=== PATIENT | male | born 1940 | race Caucasian/White ===

== ENCOUNTER 2023-01-02 14:24 | Outpatient (OUT) | payer MEDICARE, SELFPAY ==
[2023-01-03 05:08] LABS: PSA, Free 1.38 ng/mL; Prostate Specific Ag 10.4 ng/mL (0.0-4.0)
== END 2023-01-02 14:25 | disposition home or self-care (01) ==
LOC: LAB 14:25
PROVIDERS: PCP Family Medicine; Visit Provider Urology
DX: R97.20 Elevated prostate specific antigen [PSA] (principal)
CPT/HCPCS: 36415; 84153; 84154

== ENCOUNTER 2023-06-23 12:46 | Emergency (ER) | payer MEDICARE, SELFPAY ==
--- NOTE | 2023-06-23 12:59 | ED_ITS ---
HPI - CPR General Chief Complaint: Cardiac Arrest/CPR Stated Complaint: cardiac arrest Source: family Mode of arrival: ambulance History of Present Illness HPI Narrative: This patient was brought to us by ambulance by local paramedics. A [facility] had been called based on their initial report. When they arrived here resuscitation efforts continued while we clarified information. The medics indicated that they arrived at the scene of a patient who had collapsed in his workshop. His indicated that he had been grumpy the last couple days and was quiet as usual. She says that he never complained of anything. He had not been complaining of a headache or chest discomfort or trouble breathing that she was aware of. The paramedics indicated that when they arrived there he had been collapsed over and the initial rhythm strip when they put him on a monitor was asystole. At no time did he have organized electrical activity. At no time did he have spontaneous pulse or spontaneous respiratory effort. He followed there CPR and ACLS protocols. They said they worked him at the scene for between 35 and 45 minutes unsuccessfully. They also mentioned that he may have some legal documents for resuscitation wishes. I did evaluate those when they arrived here. They did have intraosseous access and had been given epinephrine per their records. Examination Exam Primary Survey: Yes pulseless, Yes asystole and Yes esophageal tracheal airway in place General: Yes overweight and Yes obese Eyes: Yes no periorbital swelling and Yes fixed dialated pupils Chest: Yes intact to palpation Circulation: Yes absent heart sounds Respiratory: Yes equal breath sounds Extremities: Yes intact to palpation MDM - Cardiac Arrest/CPR MDM Narrative Medical decision making narrative: Patient's presents after prolonged resuscitation with no pulse no spontaneous respirations. Pupils are fixed and dilated. There is no corneal blink response. No spontaneous respiratory effort distally here. They did present me with paperwork that indicated he did not want prolonged artificial life support. Will contact his primary care doctor. No indication for coronary report at this stage. Time of 1249 Discharge Plan Discharge Chief Complaint: Cardiac Arrest/CPR Print Language: [place]
--- OUTSIDE RECORDS SUMMARY | 2023-06-23 13:09 | XMS_ITS | CCD ---
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 Name Role Phone MD Alia Souza Primary Care Provider DO Bernardo Trevino Attending Provider BRISTOL, DR GOYAL Admitting Unavailable BRISTOL, DR GOYAL Attending Unavailable BRISTOL, DR GOYAL Primary Care Unavailable BRISTOL, DR GOYAL Consulting Unavailable BRISTOL, DR GOYAL Admitting Unavailable BRISTOL, DR GOYAL Attending Unavailable BRISTOL, DR GOYAL Primary Care Unavailable BRISTOL, DR GOYAL Consulting Unavailable BRISTOL, DR GOYAL Admitting Unavailable BRISTOL, DR GOYAL Attending Unavailable BRISTOL, DR GOYAL Primary Care Unavailable BRISTOL, DR GOYAL Consulting Unavailable Jerardo MAR Attending Unavailable MAR, Jerardo De La Rosa Attending Unavailable BRISTOL, BERNARDO Referring Unavailable Allergies Allergy Classification Reported Allergen(s) Allergy Type Date of Onset Reaction(s) Facility (1 source) No Known Medication Allergies; Translations: [No Known Medication Allergies] Propensity to adverse reactions (disorder) [facility] Repository Problems Problem Classification Problem Date Documented Da te Episodic/Chronic Diabetes mellitus without complication (4 sources) Type 2 diabetes mellitus without complications; Translations: [TYPE 2 DM WITHOUT COMPLICATIONS] Onset: 04-18-2022 Chronic Genitourinary symptoms and ill-defined conditions (1 source) Post-void dribbling; Translations: [POST-VOID DRIBBLING] Onset: 04-20-2022 Chronic Other circulatory disease (1 source) Elevated blood-pressure reading, without diagnosis of hypertension; Translations: [ELEVATED BP READING W/O DX HTN] Onset: 04-20-2022 Episodic Other screening for suspected conditions (not mental disorders or infectious disease) (6 sources) Elevated prostate specific antigen [PSA]; Translations: [Encounter for screening for malignant neoplasm of prostate] Onset: 04-20-2022 Episodic Viral infection (4 sources) COVID-19; Translations: [COVID-19] Onset: 09-26-2021 Results Test Name Value Interpretation Reference Range Facility Ambulatory Visit Summaryon 1 Ambulatory Visit Summary JORDIN AGUIAR :1940 Visit Date:01/09/2023 Ambulatory Visit Instructions Your Diagnosis Elevated PSA Tests Performed Urnls Dip Stick Auto w/o Microscopy POC 71025 Your Care Team Attending Physician - Jerardo MAR MD Primary Care Physician - BERNARDO TREVINO DO This Is Your Medications List Contact prescribing physician if questions or concerns aspirin (aspirin 81 mg Oral EC Tab) metformin (metformin 500 mg Tab) Procedures Performed Tonsillectomy. Discharge Vitals Heart Rate (Peripheral) 75 Respiratory Rate 16 Blood Pressure 131/71 Height 170 cm Height 67 in Weight 110.2 kg Weight 242.44 lb BMI 38.13 What to do next You Need to Schedule the Following Appointments Follow Up with ISABELA ISBELL, Jerardo De La Rosa, JESSIE When: Where: [address] [place] [address]- Medications What How Much When Instructions Unchanged aspirin (aspirin 81 mg Oral EC Tab) Every day Contact prescribing physician if questions or concerns Unchanged metformin (metformin 500 mg Tab) Contact prescribing physician if questions or concerns Test Results Urnls Dip Stick Auto w/o Microscopy POC 10815 (01/09/2023) Bilirubin Urine Dipstick - Negative Blood Urine Dipstick - Trace-intact Glucose Urine Dipstick - Negative Ketones Urine Dipstick - Negative Leukocytes Urine Dipstick - Negative Nitrite Urine Dipstick - Negative Protein Urine Dipstick - 1+ (30 mg/dl) Specific [place] Urine Dipstick - >=1.030 Urine Appearance Urine Dipstick - Clear Urine Color Urine Dipstick - Yellow Urobilinogen Urine Dipstick - Normal 0.2-1 EU/dl pH Urine Dipstick - 5.5 Allergies No Known Medication Allergies Problems Ongoing - Any problem that you are currently receiving treatment for. Elevated PSA Prediabetes Patient Survey You may receive a survey via text or e-mail asking about your office visit. Please share your experience with us by completing your survey. We appreciate your feedback and thank you for choosing us for your care. Education Materials Prostate Cancer Screening Prostate cancer screening is testing that is done to check for the presence of prostate cancer in men. The prostate gland is a walnut-sized gland that is located below the bladder and in front of the rectum in males. The function of the prostate is to add fluid to semen during ejaculation. Prostate cancer is one of the most common types of cancer in men. Who should have prostate cancer screening? Screening recommendations vary based on age and other risk factors, as well as between the professional organizations who make the recommendations. In general, screening is recommended if: ? You are age 50 to 70 and have an average risk for prostate cancer. You should talk with your health care provider about your need for screening and how often screening should be done. Because most prostate cancers are slow growing and will not cause , screening in this age group is generally reserved for men who have a 10- to 15-year life expectancy. ? You are younger than age 50, and you have these risk factors: ? Having a father, brother, or uncle who has been diagnosed with prostate cancer. The risk is higher if your family member's cancer occurred at an early age or if you have multiple family members with prostate cancer at an early age. ? Being a male who is Black or is of [place] or sub-Saharan descent. In general, screening is not recommended if: ? You are younger than age 40. ? You are between the ages of 40 and 49 and you have no risk factors. ? You are 70 years of age or older. At this age, the risks that screening can cause are greater than the benefits that it may provide. If you are at high risk for prostate cancer, your health care provider may recommend that you have screenings more often or that you start screening at a younger age. How is screening for prostate cancer done? The recommended prostate cancer screening test is a blood test called the prostate-specific antigen (PSA) test. PSA is a protein that is made in the prostate. As you age, your prostate naturally produces more PSA. Abnormally high PSA levels may be caused by: ? Prostate cancer. ? An enlarged prostate that is not caused by cancer (benign prostatic hyperplasia, or BPH). This condition is very common in older men. ? A prostate gland infection (prostatitis) or urinary tract infection. ? Certain medicines such as male hormones (like testosterone) or other medicines that raise testosterone levels. A rectal exam may be done as part of prostate cancer screening to help provide information about the size of your prostate gland. When a rectal exam is performed, it should be done after the PSA level is drawn to avoid any effect on the results. Depending on the PSA results, you may need more tests, such as: ? A physical exam to check the size of your (more content not included)... Normal [facility] Patient Educationon 01-10-20 23 Patient Education Oncology Prostate Cancer Screening Prostate cancer screening is testing that is done to check for the presence of prostate cancer in men. The prostate gland is a walnut-sized gland that is located below the bladder and in front of the rectum in males. The function of the prostate is to add fluid to semen during ejaculation. Prostate cancer is one of the most common types of cancer in men. Who should have prostate cancer screening? Screening recommendations vary based on age and other risk factors, as well as between the professional organizations who make the recommendations. In general, screening is recommended if: ? You are age 50 to 70 and have an average risk for prostate cancer. You should talk with your health care provider about your need for screening and how often screening should be done. Because most prostate cancers are slow growing and will not cause , screening in this age group is generally reserved for men who have a 10- to 15-year life expectancy. ? You are younger than age 50, and you have these risk factors: ? Having a father, brother, or uncle who has been diagnosed with prostate cancer. The risk is higher if your family member's cancer occurred at an early age or if you have multiple family members with prostate cancer at an early age. ? Being a male who is Black or is of [place] or sub-Saharan descent. In general, screening is not recommended if: ? You are younger than age 40. ? You are between the ages of 40 and 49 and you have no risk factors. ? You are 70 years of age or older. At this age, the risks that screening can cause are greater than the benefits that it may provide. If you are at high risk for prostate cancer, your health care provider may recommend that you have screenings more often or that you start screening at a younger age. How is screening for prostate cancer done? The recommended prostate cancer screening test is a blood test called the prostate-specific antigen (PSA) test. PSA is a protein that is made in the prostate. As you age, your prostate naturally produces more PSA. Abnormally high PSA levels may be caused by: ? Prostate cancer. ? An enlarged prostate that is not caused by cancer (benign prostatic hyperplasia, or BPH). This condition is very common in older men. ? A prostate gland infection (prostatitis) or urinary tract infection. ? Certain medicines such as male hormones (like testosterone) or other medicines that raise testosterone levels. A rectal exam may be done as part of prostate cancer screening to help provide information about the size of your prostate gland. When a rectal exam is performed, it should be done after the PSA level is drawn to avoid any effect on the results. Depending on the PSA results, you may need more tests, such as: ? A physical exam to check the size of your prostate gland, if not done as part of screening. ? Blood and imaging tests. ? A procedure to remove tissue samples from your prostate gland for testing (biopsy). This is the only way to know for certain if you have prostate cancer. What are the benefits of prostate cancer screening? ? Screening can help to identify cancer at an early stage, before symptoms start and when the cancer can be treated more easily. ? There is a small chance that screening may lower your risk of dying from prostate cancer. The chance is small because prostate cancer is a slow-growing cancer, and most men with prostate cancer from a different cause. What are the risks of prostate cancer screening? The main risk of prostate cancer screening is diagnosing and treating prostate cancer that would never have caused any symptoms or problems. This is called overdiagnosisand overtreatment. PSA screening cannot tell you if your PSA is high due to cancer or a different cause. A prostate biopsy is the only procedure to diagnose prostate cancer. Even the results of a biopsy may not tell you if your cancer needs to be treated. Slow-growing prostate cancer may not need any treatment other than monitoring, so diagnosing and treating it may cause unnecessary stress or other side effects. Questions to ask your health care provider ? When should I start prostate cancer screening? ? What is my risk for prostate cancer? ? How often do I need screening? ? What type of screening tests do I need? ? How do I get my test results? ? What do my results mean? ? Do I need treatment? Where to find more information ? The [place] [employer]: www.cancer.org ? [place] [employer]: www.auanet.org Contact a health care provider if: ? You have difficulty urinating. ? You have pain when you urinate or ejaculate. ? You have blood in your urine or semen. ? You have pain in your back or in the area of your prostate. Summary ? Prostate cancer is a common type of cancer in men. The prostate gland is located below the bladder and in front of the rectum. This gland adds flu (more content not included)... Normal [facility] Urology Office/Clinic Noteon 01-09-2023 Urology Office/Clinic Note Chief Complaint elevated PSA HPI Staff 6 month f/u with PSA F&T. Previous dx of elevated PSA. Current PSA done 01/02/23 is 10.4 and 13.3% and previous done 04/22/22 was 6.9 and 17.7%. Dysuria: no Incomplete bladder emptying: no Hematuria: no Frequency: no Urgency: no Nocturia: no Stream: good stead stream Leaking: no Post void dripping: no Wearing pads/ Depends: no Urge incontinence: no Stress incontinence: no Incontinence without Sensory Awareness: no Abdominal pain: none Flank pain: none Sexual complaints: no History of Present Illness Tests reviewed: Reviewed UA and PSA. I have reviewed the previous health record information and history for this patient from Dr. Mar. I have reviewed and verified the staff HPI to be accurate for this encounter. There have been no associated fever, chills, flank pain, or blood in the urine. Denies any urinary infections since last encounter. Review of Systems PHQ Score Initial Depression Screen Score: 0 ROS - Provider Constitutional: denies weight loss, denies hot flashes. Eyes: denies eye problems. Gastrointestinal: denies nausea, denies vomiting. Cardiovascular: denies chest pain or angina. Integumentary: no dryness Musculoskeletal: denies musculoskeletal symptoms. ENMT: denies otolaryngeal symptoms. Respiratory: no shortness of breath. Heme/Lymph: denies easy bleeding tendency, denies easy bruising tendency. Psychiatric: no confusion, no anxiety. Genitourinary: See HPI. Physical Exam Vitals & Measurements HR: 75(Peripheral) RR: 16 BP: 131/71 HT: 67 in HT: 170 cm WT: 110.2 kg WT: 242.44 lb BMI: 38.13 General Appearance: alert, no distress, well nourished, well developed male. Genitourinary: normal scrotum, normal testes, normal urethra, normal epididymis, normal vas deferens/spermatic cord. Flank Pain: none. Bladder: nonpalpable. Assessment/Plan Per pt's , pt has cognitive issues. 1. Elevated PSA (R97.20: Elevated prostate specific antigen [PSA]) PSA: 02/29/20 - 6.06 05/08/22 - 9.19 04/22/22 - 6.90 & 17% 01/02/23 - 10.4 & 13.3% ANGEL 06/30/22: 45g, benign. No urinary concerns. UA unremarkable. Neg fam hx of prostate cancer. Explained to pt that his PSA has increased. Pt understands there is a risk for prostate cancer given pt's elevated PSA. Per last note, pt is not interested in tx for prostate cancer. Pt again states he is not interested in tx even if a bx would reveal prostate cancer. States he feels fine and has no sx. Explained to pt that prostate cancer usually does not present with sx. Pt is agreeable with no longer checking PSA given his advancing age. -Stop PSA checks -No follow up indicated at this time -Advised pt to discuss decision with his spouse and his family doc. -Pt to call if he wishes to move forward with workup Follow-up With When Contact Information ISABELA ISBELL, Jerardo De La Rosa, URL [facility] [place] [id number]- Additional Instructions: PRN Patient Education Prostate Cancer Screening Priscilla Wan, personally scribed for Dr. Mar on 01/09/2023 09:48:21. . Documentation recorded by the scribePriscilla, accurately reflects the services(s) I performed and decisions made by me. Authenticated by Dr. Mar on 01/09/2023 09:52:00. Problem List/Past Medical History Ongoing Elevated PSA Prediabetes Historical No qualifying data Procedure/Surgical History Tonsillectomy. Medications aspirin 81 mg Oral EC Tab, Oral, Daily metformin 500 mg Tab Allergies No Known Medication Allergies Social History Tobacco Former smoker, quit more than 30 days ago Tobacco Use:. Never Smokeless Tobacco Use:. Started age 21.0 Years. Stopped age 35 Years., 06/30/2022 Family History Family history is negative Immunizations Vaccine Date Status SARSCoV2 mRNA(wfheundsd-fqop-h agustindianna) vac 06/11/2021 Recorded SARS-CoV-2 (COVID-19) mRNA BNT-162b2 vax 11/30/2020 Recorded SARS-CoV-2 (COVID-19) mRNA BNT-162b2 vax 11/09/2020 Recorded Lab Results Ambulatory Point of Care Results Bilirubin Urine Dipstick: Negative (01/09/23 09:26:00) Blood Urine Dipstick: Trace-intact (01/09/23 09:26:00) Glucose Urine Dipstick: Negative (01/09/23 09:26:00) Ketones Urine Dipstick: Negative (01/09/23 09:26:00) Leukocytes Urine Dipstick: Negative (01/09/23 09:26:00) Nitrite Urine Dipstick: Negative (01/09/23 09:26:00) Protein Urine Dipstick: 1+ (30 mg/dl) (01/09/23 09:26:00) Specific [place] Urine Dipstick: >=1.030 (01/09/23 09:26:00) Urine Appearance Urine Dipstick: Clear (01/09/23 09:26:00) Urine Color Urine Dipstick: Yellow (01/09/23 09:26:00) Urobilinogen Urine Dipstick: Normal 0.2-1 EU/dl (01/09/23 09:26:00) pH Urine Dipstick: 5.5 (01/09/23 09:26:00) Normal [facility] Comment on above: Result Comment: Elec tronically Signed By: Jerardo MAR MD\.br\Date and Time Signed: 01/09/23 09:52 EDT\.br\Electronically Co-Signed By: Priscilla Rodriguez\Date and Time Co-Signed: 01/09/23 09:49 EDT Lab Reportson 01-07-2023 Lab Reports [id number] Normal [facility] Physician Referralon 023 Physician Referral [id number] .[id number] Normal [facility] Ambulatory Visit Summaryon 0 06-30-2022 Ambulatory Visit Summary JORDIN AGUIAR :1940 Visit Date:06/30/2022 Ambulatory Visit Instructions Your Diagnosis Elevated PSA Your Care Team Attending Physician - Jerardo MAR MD Primary Care Physician - BERNARDO TREVINO DO Referring Physician - BERNARDO TREVINO DO This Is Your Medications List Contact prescribing physician if questions or concerns metformin (metformin 500 mg Tab) Procedures Performed Tonsillectomy. Discharge Vitals Heart Rate (Peripheral) 66 Respiratory Rate 16 Blood Pressure 140/78 Height 170 cm Height 67 in Weight 109 kg Weight 239.8 lb BMI 37.72 What to do next Scheduled Follow-Up Appointments Thursday 8:45 AM EDT With: Jerardo MAR MD Where: [facility] Patient Educationon 07-01-19 23 Patient Education Oncology Prostate Cancer Screening The prostate is a walnut-sized gland that is located below the bladder and in front of the rectum in males. The function of the prostate (prostate gland) is to add fluid to semen during ejaculation. Prostate cancer is the second most common type of cancer in men. A screening test for cancer is a test that is done before cancer symptoms start. Screening can help to identify cancer at an early stage, when the cancer can be treated more easily. The recommended prostate cancer screening test is a blood test called the prostate-specific antigen (PSA) test. PSA is a protein that is made in the prostate. As you age, your prostate naturally produces more PSA. Abnormally high PSA levels may be caused by: ? Prostate cancer. ? An enlarged prostate that is not caused by cancer (benign prostatic hyperplasia, BPH). This condition is very common in older men. ? A prostate gland infection (prostatitis). ? Medicines to assist with hair growth, such as finasteride. Depending on the PSA results, you may need more tests, such as: ? A physical exam to check the size of your prostate gland. ? Blood and imaging tests. ? A procedure to remove tissue samples from your prostate gland for testing (biopsy). Who should have screening? Screening recommendations vary based on age. ? If you are younger than age 40, screening is not recommended. ? If you are age 40?54 and you have no risk factors, screening is not recommended. ? If you are younger than age 55, ask your health care provider if you need screening if you have one of these risk factors: ? Being of -[place] descent. ? Having a family history of prostate cancer. ? If you are age 55?69, talk with your health care provider about your need for screening and how often screening should be done. ? If you are older than age 70, screening is not recommended. This is because the risks that screening can cause are greater than the benefits that it may provide (risks outweigh the benefits). If you are at high risk for prostate cancer, your health care provider may recommend that you have screenings more often or start screening at a younger age. You may be at high risk if you: ? Are older than age 55. ? Are -[place]. ? Have a father, brother, or uncle who has been diagnosed with prostate cancer. The risk may be higher if your family member's cancer occurred at an early age. What are the benefits of screening? There is a small chance that screening may lower your risk of dying from prostate cancer. The chance is small because prostate cancer is typically a slow-growing cancer, and most men with prostate cancer from a different cause. What are the risks of screening? The main risk of prostate cancer screening is diagnosing and treating prostate cancer that would never have caused any symptoms or problems (overdiagnosis and overtreatment). PSA screening cannot tell you if your PSA is high due to cancer or a different cause. A prostate biopsy is the only procedure to diagnose prostate cancer. Even the results of a biopsy may not tell you if your cancer needs to be treated. Slow-growing prostate cancer may not need any treatment other than monitoring, so diagnosing and treating it may cause unnecessary stress or other side effects. A prostate biopsy may also cause: ? Infection or fever. ? A false negative. This is a result that shows that you do not have prostate cancer when you actually do have prostate cancer. Questions to ask your health care provider ? When should I start prostate cancer screening? ? What is my risk for prostate cancer? ? How often do I need screening? ? What type of screening tests do I need? ? How do I get my test results? ? What do my results mean? ? Do I need treatment? Contact a health care provider if: ? You have difficulty urinating. ? You have pain when you urinate or ejaculate. ? You have blood in your urine or semen. ? You have pain in your back or in the area of your prostate. ? You have trouble getting or maintaining an erection (erectile dysfunction, ED). Summary ? Prostate cancer is a common type of cancer in men. The prostate (prostate gland) is located below the bladder and in front of the rectum. This gland adds fluid to semen during ejaculation. ? Prostate cancer screening may identify cancer at an early stage, when the cancer can be treated more easily. ? The prostate-specific antigen (PSA) test is the recommended screening test for prostate cancer. ? Discuss the risks and benefits of prostate cancer screening with your health care provider. If you are age 70 or older, screening is likely to lead to more risks than benefits (risks outweigh the benefits). This information is not intended to replace advice given to you by your health care provider. Make sure you discuss any questions you have with your health care provider. Document Released: 12/11/2017 Document R (more content not included)... Normal [facility] PSA, FREE AND TOTAL RATIOon 04-23-2022 % Free PSA 17.7 % Normal [facility] Comment on above: Result Comment: The table below lists the probability of prostate cancer for men with non-suspicious ANGEL results and total PSA between 4 and 10 ng/mL, by patient age (Golden et al, BASIL[place] 1998, 279:1542). % Free PSA 50-64 yr 65-75 yr 0.00-10.00% 56% 55% 10.01-15.00% 24% 35% 15.01-20.00% 17% 23% 20.01-25.00% 10% 20% >25.00% 5% 9% Please note: Golden et al did not make specific recommendations regarding the use of percent free PSA for any other population of men. Performed By: #### P SAFMINA #### [facility] [address] [place] [address] Dr. Onur Perales Prostate specific Ag [Mass/Vol] 6.9 ng/mL Critically high 0.0-4.0 [facility] Comment on above: Result Comment: Anibal FORD methodology. . According to the [place] [employer], Serum PSA should decrease and remain at undetectable levels after radical prostatectomy. The AUA defines biochemical recurrence as an initial PSA value 0.2 ng/mL or greater followed by a subsequent confirmatory PSA value 0.2 ng/mL or greater. Values obtained with different assay methods or kits cannot be used interchangeably. Results cannot be interpreted as absolute evidence of the presence or absence of malignant disease. Performed By: #### P SAFREE #### [facility] [address] [place] [address] Dr. Onur Perales PSA, Free 1.22 ng/mL Normal N/A [facility] Comment on above: Result Comment: Anibal FORD methodology. Performed By: #### P SAFREE #### [facility] [address] [place] [address] Dr. Onur Perales GLYCOHEMOGLOBIN A1Con 2022 ADA RECOMMENDATION SEE BELOW Normal [facility] Comment on above: Result Comment: ADA RECOMMENDED LIMIT 4.0 - 6.0 ADA THERAPEUTIC TARGET < 7.0 ACTION SUGGESTED > 7.0 Performed By: #### A 1C #### [facility] [address] [place] [address] Dr. Onur Perales Glucose [Mass/Vol] 255 mg/dL Normal [facility] Comment on above: Performed By: #### A 1C #### [facility] [address] [place] [address] Dr. Onur Perales HbA1c (Bld) [Mass fraction] 10.5 % Critically high 4.5-6.2 [facility] Comment on above: Performed By: #### A 1C #### [facility] [address] [place] [address] Dr. Onur Perales PROF 14(COMP METB)on 023 Albumin [Mass/Vol] 3.6 g/dL Normal 3.4-5.0 [facility] Comment on above: Performed By: #### C MP #### [facility] [address] [place] [address] Dr. Onur Perales Albumin/Globulin [Mass ratio] 1.0 {ratio} Normal [facility] Comment on above: Performed By: #### C MP #### [facility] [address] [address] [address] Onur Perales ALP [Catalytic activity/Vol] 73 U/L Normal 46-116 [facility] Comment on above: Performed By: #### C MP #### [facility] [address] [place] [address] Dr. Onur Perales ALT [Catalytic activity/Vol] 22 U/L Normal 16-63 [facility] Comment on above: Performed By: #### C MP #### [facility] [address] [place] [address] Dr. Onur Perales Anion gap [Moles/Vol] 12.3 mmol/L Normal [facility] Comment on above: Performed By: #### C MP #### [facility] [address] [place] [address] Dr. Onur Perales AST [Catalytic activity/Vol] 19 U/L Normal 15-37 [facility] Comment on above: Performed By: #### C MP #### [facility] [address] [place] [address] Dr. Onur Perales Bilirubin [Mass/Vol] 0.9 mg/dL Normal 0.2-1.0 [facility] Comment on above: Performed By: #### C MP #### [facility] [address] [place] [address] Dr. Onur Perales Calcium [Mass/Vol] 9.3 mg/dL Normal 8.5-10.1 [facility] Comment on above: Performed By: #### C MP #### [facility] [address] [place] [address] Dr. Onur Perales Chloride [Moles/Vol] 104 mmol/L Normal 98-107 [facility] Comment on above: Performed By: #### C MP #### [facility] [address] [place] [address] Dr. Onur Perales CO2 [Moles/Vol] 24.2 mmol/L Normal 21.0-32.0 [facility] Comment on above: Performed By: #### C MP #### [facility] [address] [place] [address] Dr. Onur Perales Creatinine [Mass/Vol] 1.18 mg/dL Normal 0.70-1.30 [facility] Comment on above: Performed By: #### C MP #### [facility] [address] [address] [address] Onur Perales EGFR-AF TUVALUAN >60 Normal >=60 [facility] Comment on above: Performed By: #### C MP #### [facility] [address] [address] [address] Onur Perales EGFR-NON AF TUVALUAN 59 mL/min/1.73m2 Critically low >=60 [facility] Comment on above: Performed By: #### C MP #### [facility] [address] [place] [address] Dr. Onur Perales Globulin (S) [Mass/Vol] 3.7 g/dL Normal [facility] Comment on above: Performed By: #### C MP #### [facility] [address] [place] [address] Dr. Onur Perales Glucose [Mass/Vol] 300 mg/dL Critically high 74-106 [facility] Comment on above: Performed By: #### C MP #### [facility] [address] [place] [address] Dr. Onur Perales Potassium [Moles/Vol] 4.2 mmol/L Normal 3.5-5.1 [facility] Comment on above: Performed By: #### C MP #### [facility] [address] [place] [address] Dr. Onur Perales Protein [Mass/Vol] 7.3 g/dL Normal 6.4-8.2 [facility] Comment on above: Performed By: #### C MP #### [facility] [address] [address] [address] Onur Perales Sodium [Moles/Vol] 138 mmol/L Normal 136-145 [facility] Comment on above: Performed By: #### C MP #### [facility] [address] [place] [address] Dr. Onur Perales Urea nitrogen [Mass/Vol] 20.0 mg/dL Critically high 7.0-18.0 [facility] Comment on above: Performed By: #### C MP #### [facility] [address] [place] [address] Dr. Onur Perales Urea nitrogen/Creatinine [Mass ratio] 17.0 mg/mg Normal [facility] Comment on above: Performed By: #### C MP #### [facility] [address] [place] [address] Dr. Onur Perales UA RANDOMon 04-18-2022 Bilirubin Ql (U) Negative Normal NEGATIVE [facility] Comment on above: Performed By: #### U A #### [facility] [address] [place] [address] Dr. Onur Perales Clarity (U) CLEAR Normal CLEAR [facility] Comment on above: Performed By: #### U A #### [facility] [address] [place] [address] Dr. Onur Perales Color (U) LT. YELLOW Normal YELLOW [facility] Comment on above: Performed By: #### U A #### [facility] [address] [place] [address] Dr. Onur Perales Glucose Ql (U) >1000 Abnormal NEGATIVE [facility] Comment on above: Performed By: #### U A #### [facility] [address] [place] [address] Dr. Onur Perales Hemoglobin Ql (U) Negative Normal NEGATIVE [facility] Comment on above: Performed By: #### U A #### [facility] [address] [place] [address] Dr. Onur Perales Ketones Ql (U) Negative Normal NEGATIVE [facility] Comment on above: Performed By: #### U A #### [facility] [address] [place] [address] Dr. Onur Perales LEUKOCYTES Negative Normal NEGATIVE [facility] Comment on above: Performed By: #### U A #### [facility] [address] [place] [address] Dr. Onur Perales Nitrite Ql (U) Negative Normal NEGATIVE [facility] Comment on above: Performed By: #### U A #### [facility] [address] [place] [address] Dr. Onur Perales pH (U) 5.5 [pH] Normal 5-9 [facility] Comment on above: Performed By: #### U A #### [facility] [address] [place] [address] Dr. Onur Perales SPEC GRAVITY 1.025 Normal 1.005-<=1.025 [facility] Comment on above: Performed By: #### U A #### [facility] [address] [place] [address] Dr. Onur Perales UA PROTEIN 30 mg/dl Abnormal NEGATIVE/ TRACE [facility] Comment on above: Performed By: #### U A #### [facility] [address] [place] [address] Dr. Onur Perales Urobilinogen Qn (U) 0.2 {Mulu'U}/dL Normal 0.2 - 1. 0 [facility] Comment on above: Performed By: #### U A #### [facility] [address] [place] [address] Dr. Onur Perales Covid-19 PCR (CVDTB)on 09-13 SARS-CoV-2 (COVID-19) RNA NIDHI+probe Ql (Unsp spec) Detected Critically abnormal NOT DETECTED [facility] Comment on above: Result Comment: This test is not yet approved or cleared by the [place] FDA. When there are no FDA-approved or cleared tests available, and other criteria are met, FDA can make tests available under an emergency access mechanism called an Emergency Use Authorization (EUA). The EUA for this test is supported by the Driver Salesman of Health and Human Service's (HHS's) declaration that circumstances exist to justify the emergency use of in vitro diagnostics for the detection and/or diagnosis of the virus that causes COVID-19. This EUA will remain in effect (meaning this test can be used) for the duration of the COVID-19 declaration justifying emergency of IVDs, unless it is terminated or revoked by FDA (after which the test may no longer be used). Performed By: #### C VDTBH #### [facility] [address] [place], [place] [address] Dr. Onur Perales XR lumbar spine min 4V*on XR lumbar spine min 4V* [facility] [place] [address] [place] [id number] XRay Report Signed Patient: Jordin Aguiar MR#: [id number] : 1940 Acct:[id number] Age/Sex: 81 / M ADM Date: 07/18/21 Loc: ICXD Room: [facility] Attending Dr: Bernardo Trevino DO Ordering Provider: Bernardo Trevino DO Date of Service: 07/18/21 XR/XR lumbar spine min 4V*: M54.50 Copies to: Bernardo Trevino DO 6 views lumbar spine HISTORY: Lower lumbar spine pain and RIGHT hip pain. COMPARISON:None Lumbar lordosis is adequate. No acute lumbar spine fracture is identified. Mild degenerative listhesis identified. Multilevel yrix-ie-ujyfkjhr spondylosis present. Lower lumbar hypertrophic facet changes present. Mild scoliosis. Large gallstone. LEFT nephrolithiasis measures up to 10 mm. Atherosclerosis noted. No paraspinal abnormality seen. SI joints are maintained. XR/XR lumbar spine min 4V* IMPRESSION: Moderate lumbar degeneration. No acute bony findings. Impression dictated by: Cheo Gutierrez M.D.07/18/2021 4:34 PM Dictation Location: [place] [address] Transcribed By: [facility] 07/18/21 1634 Dictated By: Cheo Gutierrez DO 07/18/21 1627 Signed By: 07/18/21 1634 Normal [facility] Encounters Encounter Date Encounter Type Care Provider Facility Start: 01-09-2023 End: 01-10-2023 ambulatory Jerardo MAR Facility:[facility] Start: 06-30-2022 End: 07-01-2022 ambulatory Jerardo MAR Facility:[facility] Start: 05-20-2022 ambulatory Jerardo MAR Facility :[facility] Start: 04-22-2022 End: 04-23-[address] BERNARDO TREVINO Facility:[facility] Start: 04-18-2022 End: 04-19-[address] BERNARDO TREVINO Facility:[facility] Start: 09-26-2021 End: 09-26-[address] BERNARDO TREVINO Facility:[facility] Start: 07-18-2021 End: 07-18-2021 Patient encounter procedure MD Alia Souza Work Phone: [facility] [address] Procedures Date Procedure Procedure Detail Performing Clinician Start: 04-18-[address] BERNARDO TREVINO Comment on above: Performed By: #### P [facility] #### [facility] [address] [place] [address] Dr. Onur Perales Start: 07-18-2021 X-ray of lumbar spin e, four or more views MD Alia Souza Work Phone: Payers Date Payer Category Payer Unknown [id number] 1960 Medicare [id number] 1940 Unknown [id number] 1940 Unknown [id number] 1940 Unknown [id number] 1940 Unknown [id number] 1940 Unknown [id number] Self-pay [id number] 2 Unknown [facility] [id number] Social History Date Type Detail Facility [facility] Work Phone: Start: 1940 Sex Assigned At Male F [facility] Clinical Note 06-30-2022 Note Date & Type Note Facility 06-30-2022 Note Chief Complaint Referral *Elevated PSA HPI Staff Evaluation requested by Dr Bernardo Trevino due to elevated PSA. Pt is a new pt, never before seen in our office. PSA done 04/22/22- 6.9 & 17.7% PSA done 04/18/22- 9.19 PSA done 02/29/20- 6.06 Pt's states PSA was not checked yearly. States no Tx or anything after the PSA that was done in 2019. Pt denies any urinary complications. However, per pt's Zeferino, who is with him today, pt was having urgency with incontinence. Then started Metformin 1 month ago and the urgency and loss of bladder control subsided. Pt denies family Hx of Prostate Cancer. Pt denies pain/burning and visible blood in urine. History of Present Illness Tests reviewed: reviewed UA, referral records. I have reviewed the previous health record information and history for this patient from Dr. Trevino. I have reviewed and verified the staff HPI to be accurate for this encounter. There have been no associated fever, chills, flank pain, or blood in the urine. Denies any urinary infections since last encounter. Review of Systems PHQ Score Initial Depression Screen Score: 0 ROS - Provider Constitutional: denies weight loss, denies hot flashes. Eyes: denies eye problems. Gastrointestinal: denies nausea, denies vomiting. Cardiovascular: denies chest pain or angina. Integumentary: no dryness Musculoskeletal: denies musculoskeletal symptoms. ENMT: denies otolaryngeal symptoms. Respiratory: no shortness of breath. Heme/Lymph: denies easy bleeding tendency, denies easy bruising tendency. Psychiatric: no confusion, no anxiety. Genitourinary: See HPI. Physical Exam Vitals & Measurements HR: 66(Peripheral) RR: 16 BP: 140/78 HT: 67 in HT: 170 cm WT: 109 kg WT: 239.8 lb BMI: 37.72 General Appearance: alert, no distress, well nourished, well developed male. Head: normocephalic . Eyes: normal orbit and globe. ENMT: normal examination of external ears. Chest: Lungs CTA, respirations non labored. Cardiovascular: regular rate and rhythm. Abdomen: soft, non distended, no tenderness, no mass or organomegaly, no hernia. Genitourinary: normal scrotum, normal testes, normal urethra, normal epididymis, normal vas deferens/spermatic cord. Flank Pain: none. Bladder: nonpalpable. Penis: normal shaft, normal glans. Prostate: normal prostate, estimated weight 45 gms, no hard nodule observed. Lymph Nodes: unremarkable palpation of the cervical area. Skin: warm, dry, no bruising. Psychiatric: cooperative, affect appropriate for age, normal judgement, euthymic mood. Assessment/Plan Jordin is a 82 yo male new pt referred by Dr. Trevino due to elevated PSA. Pt here with his today. Per pt's , pt has cognitive issues. 1. Elevated PSA (R97.20: Elevated prostate specific antigen [PSA]) PSA: 02/29/20 - 6.06 04/18/22 - 9.19 04/22/22 - 6.90 & 17.7% UA today negative for blood and infection. Denies family hx of prostate cancer. No UTIs. Explained causes of PSA elevation. also discussed possibly proceeding with a trus/bx or not, given pt's advanced age. Pt states he would not be interested in tx for prostate ca and therefore, not interested in getting a trus/bx at this time. ANGEL 45 gm, no nodules. Follow up 6 mos with PSA FT or sooner if needed. Pt understands and agrees with plan. Follow-up With When Contact Information ISABELA ISBELL, Jerardo De La Rosa, [facility] [address], [place] [address]- Additional Instructions: 6 mos with PSA FT Patient Education Prostate Cancer Screening I, Tabitha Mendoza, personally scribed for Dr. Mar on 06/30/2022 10:04:17. . Documentation recorded by the scribe, Tabitha Mendoza, accurately reflects the services(s) I performed and decisions made by me. Authenticated by Dr. Mar on 06/30/2022 10:08:37. Problem List/Past Medical History Ongoing Elevated PSA Prediabetes Historical No qualifying data Procedure/Surgical History Tonsillectomy. Medications metformin 500 mg Tab Allergies No Known Medication Allergies Social History Tobacco Former smoker, quit more than 30 days ago Tobacco Use:. Never Smokeless Tobacco Use:. Started age 21.0 Years. Stopped age 35 Years., 06/30/2022 Family History Family history is negative Immunizations Vaccine Date Status SARSCoV2 mRNA(lnfsjlfum-dlfx-metpiv) vac 06/11/2021 Recorded SARS-CoV-2 (COVID-19) mRNA BNT-162b2 vax 11/30/2020 Recorded SARS-CoV-2 (COVID-19) mRNA BNT-162b2 vax 11/09/2020 Recorded [facility] Comment on above: Result Comment: Elec tronically Signed By: Jerardo MAR MD\.br\Date and Time Signed: 06/30/22 10:08 EDT\.br\Electronically Co-Signed By: Tabitha Mendoza\.br\Date and Time Co-Signed: 06/30/22 10:04 EDT Evaluation note Note Date & Type Note Facility Evaluation note No assessment information availa [facility] Work Phone: Summary Purpose Family History No Family History Records FoundNo Family History Records FoundNo Family History Records Found Advance Directives No Advanced Directives Records FoundNo Advanced Directives Records FoundNo Advanced Directives Records Found Additional Source Comments Care Teams (unrecognized sec tion and content) Team Status: Inactive Member Role Status Margot Souza MD Primary Care Provider Active Bernardo Trevino DO Attending Provider Active Team Status: Active Member Role Status Margot Souza MD Primary Care Provider Active Goals (unrecognized section and content) Goals may be documented in a n alternate section (unrecognized sect ion and content) No Status Records FoundNo Status Records FoundNo Status Records Found INFORMATION SOURCE (unrecogn ized section and content) DATE CREATED AUTHOR 08/08/2021 [facility] DATE CREATED AUTHOR AUTHOR'S ORGANIZ ATION 04/23/2022 [facility] DATE CREATED AUTHOR AUTHOR'S ORGANIZ ATION 01/11/2023 [facility] FOR RECORDS PERTAINING TO PATIENTS WHO ARE OR HAVE BEEN ENROLLED IN A CHEMICAL DEPENDENCY/SUBSTANCEABUSE PROGRAM, SOME INFORMATION MAY BE OMITTED. This clinical summary was aggregated from multiple sources. Caution should be exercised in using it in the provision of clinical care. This summary normalizes information from multiple sources, and as a consequence, information in this document may materially change the coding, format and clinical context of patient data. In addition, data may be omitted in some cases. CLINICAL DECISIONS SHOULD BE BASED ON THE PRIMARY CLINICAL RECORDS. [facility] [employer] [facility]. provides no warranty or guarantee of the accuracy or completeness of information in this document.
--- NOTE | 2023-06-23 18:09 | PC.NURSE ---
This RN called patients , Natalie, to update that the patient was not wearing shoes when patient arrived to the ER. This RN told that patient had 2 gold rings on, 1 on left hand and 1 on the right hand. stated thanks. No further questions.
== END 2023-06-23 15:03 | disposition expired ==
LOC: ER 13:00
PROVIDERS: Emergency Provider Emergency Medicine Emergency Medical Services; PCP Family Medicine
DX: I46.9 Cardiac arrest, cause unspecified (principal)
CPT/HCPCS: 92950; 99285